=== PATIENT | male | born 1945 | race Caucasian/White ===

== ENCOUNTER 2017-08-13 15:17 | Inpatient (IN) | payer OTHER ==
[2017-08-13] VITALS (18 sets, daily range): BP systolic 99–186; BP diastolic 59–136
[~2017-08-13] VITALS: Ht 172.7 cm; Wt 102.7 kg
--- NOTE | ~2017-08-13 | EKG ---
[place] [address] [place] [address] ELECTROCARDIOGRAM REPORT Name: RAVI ART Room #: HADLEY Rosales#: [id number] Admission: 08/13/17 Attend Phys: Discharge: Date of : 47 Report #: [id number] THIS REPORT FOR: //name// [facility]ly [facility] ED Test Date: 2017-08-13 Test Time: 15:22:37 Pat Name: RAVI ART Department: Room: Gender: M Supervisor Personnel Clerks: JEANCARLOS : 1945 Requested By: Armen Wolf Order Number: [id number] MD: Marcelo Jaeger Measurements Intervals [place] Rate: 41 P: AR: QRS: 38 QRSD: 201 T: 68 QT: 451 QTc: 373 Interpretive Statements A-flutter with a slow ventricular response Poor R wave progression No previous ECG available for comparison Electronically Signed On 08-13-2017 16:44:14 CDT by Marcelo Jaeger [email or web address] <ELECTRONICALLY SIGNED> By: Marcelo Jaeger MD, [facility] 08/13/17 1644 1522 1522 Marcelo Jaeger MD, FACC /EPI
--- NOTE | ~2017-08-13 | HC ---
[facility] [place] [address] CONSULTATION Name: RAVI ART Room #: 211-P [facility] IN M.R.#: [id number] Admission: 08/13/17 Attend Phys: Chalino Medina Discharge: 08/17/17 Date of : 47 Report #: [id number] THIS REPORT FOR: //name// CC: Chalino Medina NO PCP HISTORY OF PRESENT ILLNESS: This is a 71-year-old male patient who has a history of first degree AV block in the past, hypertension and diabetes, but never had any atrial arrhythmias diagnosed. The patient stated that on the day admission, he got up and just did not feel right. He said he began having some difficulty breathing when lying down, although he did not notice any progression of this prior to that. He stated he felt his chest tightness, but more so with difficulty in breathing. He said air seemed heavy to him. Because of this, he went and saw his primary care physician who evaluated him with ECG and demonstrated the presence of atrial flutter with a variable block. He has been on beta blockers for his antihypertensive regimen without issues in the past. The patient has COPD and has nocturnal oxygen, but apparently does not have severe desaturations to warrant the use of BiPAP or CPAP. He denies dependent or nondependent edema. He denies any palpitations. He denies any recent fever, chills or night sweats. Denies any other findings prior to the day of admission. He has had a stress test approximately 2 years ago at [facility] that was apparently negative without any evidence of atrial fibrillation. He is not on any anticoagulation. PAST MEDICAL HISTORY: Significant for: 1. Diabetes mellitus. 2. Hypertension. 3. Degenerative joint disease with chronic back pain. 4. History of prostate cancer. 5. IBS. ALLERGIES: No known drug allergies. PAST SURGICAL HISTORY: Significant for no major surgical procedures. MEDICATIONS AT HOME: Provigil, Coreg, aspirin, Motrin, Lipitor, Xanax, Cozaar, Lantus, [place], Lexapro, Ventolin, Neurontin, Aldactone and Janumet. DIAGNOSTIC STUDIES: Electrocardiogram: Atrial flutter with variable block. LABORATORY DATA: Noted and reviewed in the chart. REVIEW OF SYSTEMS: Positive for symptoms as mentioned and those commensurate with comorbid state, the 10-point review of system is negative. RADIOLOGY: Chest x-ray shows no acute processes. [facility] [address] [place] [address] CONSULTATION Name: RAVI ART Room #: 211-P DIS IN M.R.#: [id number] Admission: 08/13/17 Attend Phys: Chalino Medina Discharge: 08/17/17 Date of : 47 Report #: [id number] PHYSICAL EXAMINATION: GENERAL: Well-developed, well-nourished, white male, resting comfortably in no acute distress. VITAL SIGNS: Noted in the chart. HEENT: Normocephalic, atraumatic. Pupils are equal, round, reactive to light and accommodation. Extraocular muscles are intact. Sclerae and conjunctivae are anicteric. NECK: JVD is normal. Carotid upstrokes are bilaterally symmetrical. No bruits are heard. No thyromegaly. No lymphadenopathy. LUNGS: Clear to auscultation. No wheezes, rhonchi or crackles. No CVA tenderness. CARDIAC: Demonstrates a soft and variable first heart sound with a regular rhythm. No significant rubs or murmurs are noted. ABDOMEN: Soft, nontender, nondistended. Normal bowel sounds. EXTREMITIES: Without cyanosis, clubbing or edema. Distal pulses are intact. DTR symmetrical. NEUROLOGIC: Cranial nerves 2-12 are grossly normal and symmetrical. PSYCHIATRIC: Alert, oriented with normal affect. SKIN: Warm and dry. IMPRESSION: 1. Atrial flutter with variable block. He has only been off his carvedilol less than 24 hours now and we need to monitor that and make sure that the rate comes up. He is hemodynamically stable even with slower heart rates in the 40s. The issue is anticoagulation when I stopped the Lovenox and put him on heparin protocol because if he ends up needing a pacemaker, the Lovenox will be a significant factor at increasing bleeding and comorbidities. I did discuss with him the treatment of atrial flutter with anticoagulation orally for 4 weeks prior to attempt at cardioversions. Ideally, we would hold off on any type of pacing because of the possibility of pacemaker syndrome in a patient with flutter, but we will proceed as necessary. 2. Diabetes mellitus as per primary care. 3. Hypertension. We will stop the carvedilol. We will use other agents that may be more effective at controlling blood pressure such as stronger dihydropyridines like nifedipine and stronger ARBs to try and control the blood pressure without causing any type of slow heart rate. The use of also the pain medication such as the [place] may be a factor also in creating some degree of sedation. 4. Degenerative joint disease. Medications continue to monitor. <ELECTRONICALLY SIGNED> By: Kevin Espinosa MD 08/19/17 1632 0954 42 Kevin Espinosa MD /nt
--- NOTE | ~2017-08-13 | 2DMMODE ---
[facility] [address] [place] [address] 2 D/M-MODE ECHOCARDIOGRAM Name: RAVI ART Room #: 237-P ADM IN M.R.#: [id number] Admission: 08/13/17 Attend Phys: Chalino Bull Discharge: Date of : 47 Date of Service: 08/14/1728 Report #: [id number] THIS REPORT FOR: //name// APPROVED REPORT Study performed: 08/14/2017 08:24:15 EXAM: Comprehensive 2D, Doppler, and color-flow Echocardiogram Patient Location: ICU Room #: 237 Status: routine BSA: 2.14 HR: 49 bpm BP: 191/88 mmHg Other Information Study Quality: Adequate Indications COPD Diabetes Bradycardia Dyspnea Chest Pain Hypertension/HDD Atrial flutter 2D Dimensions LVEF(%): 63.32 (>50%) IVSd: 10.53 (7-11mm) LVOT Diam: 21.81 (18-24mm) LVDd: 50.99 mm PWd: 10.66 (7-11mm) LVDs: 33.39 (25-40mm) Aortic Root: 30.90 mm IVC: 28.00 mm Osman's LVEF: 63.32 % Aortic Valve AoV Peak Pollo.: 1.45 m/s AO Peak Gr.: 8.44 mmHg LVOT Max P.81 mmHg LVOT Max V: 1.10 m/s ÁNGEL Vmax: 2.82 cm2 Mitral Valve E/A Ratio: 1.6 [facility] [place] [address] [place] [address] 2 D/M-MODE ECHOCARDIOGRAM Name: RAVI ART Room #: 237-P ADM IN M.R.#: [id number] Admission: 08/13/17 Attend Phys: Chalino Bull Discharge: Date of : 47 Date of Service: 08/14/17 0928 Report #: [id number] MV Decel. Time: 148.42 ms MV E Max Pollo.: 1.42 m/s MV A Pollo.: 0.89 m/s MV PHT: 43.04 ms IVRT: 106.11 ms Pulmonary Valve PV Peak Pollo.: 1.01 m/s PV Peak Gr.: 4.06 mmHg Left Ventricle The left ventricle is normal size. There is normal LV segmental wall motion. There is normal left ventricular wall thickness. The left ventricular systolic function is normal. The left ventricular ejection fraction is within the normal range. LVEF is 60-65%. This study is not technically sufficient to allow evaluation of the LV diastolic function due to atrial flutter. Right Ventricle The right ventricle is normal size. The right ventricular systolic function is normal. Atria The left atrium size is normal. The right atrium size is normal. Aortic Valve The aortic valve is normal in structure. No aortic regurgitation is present. There is no aortic valvular stenosis. Mitral Valve The mitral valve is normal in structure. Trace mitral regurgitation. No evidence of mitral valve stenosis. Tricuspid Valve The tricuspid valve is normal in structure. There is no tricuspid valve regurgitation noted. Pulmonic Valve The pulmonary valve is normal in structure. There is no pulmonic valvular regurgitation. Great Vessels The aortic root is normal in size. IVC is dilated and collapses <50% with inspiration. Pericardium [facility] [address] [place] [address] 2 D/M-MODE ECHOCARDIOGRAM Name: KAELYNRAVI Room #: 237-P [facility] IN .R.#: [id number] Admission: 08/13/17 Attend Phys: Chalino Bull Discharge: Date of : 47 Date of Service: 08/14/17927 Report #: [id number] There is no pericardial effusion. <Conclusion> The left ventricle is normal size. LVEF is 60-65%. The aortic valve is normal in structure. The mitral valve is normal in structure. Trace mitral regurgitation. The tricuspid valve is normal in structure. The pulmonary valve is normal in structure. There is no pericardial effusion. <ELECTRONICALLY SIGNED> By: Kevin Espinosa MD 08/14/17927 7 0928 Kevin Espinosa MD /INF
[2017-08-13] MEDS ORDERED: PROVIGIL 200 M200 M1 PO (15:25)
[2017-08-13] MEDS ORDERED: AMLODIPINE BESY10 MG PO (15:25)
[2017-08-13] MEDS ORDERED: LIPITOR10 MG PO (15:26)
[2017-08-13] MEDS ORDERED: IBUPROFEN 800800 M1 PO (15:26)
[2017-08-13] MEDS ORDERED: ASPIR 8181 MG PO (15:26)
[2017-08-13] MEDS ORDERED: COREG25 MG PO (15:26)
[2017-08-13] MEDS ORDERED: XANAX 0.25 MG0.25 MG PO (15:27)
[2017-08-13] MEDS ORDERED: COZAAR 50 MG TA50 M2 PO (15:27)
[2017-08-13] MEDS ORDERED: JANUMET 50-1,01 EACH PO (15:27)
[2017-08-13] MEDS ORDERED: LANTUS100 UNIT/M SUBQ (15:28)
[2017-08-13] MEDS ORDERED: VENTOLIN HFA 1818 GM INH (15:29)
[2017-08-13] MEDS ORDERED: NORCO 10-325 T1 EACH PO (15:29)
[2017-08-13] MEDS ORDERED: LEXAPRO20 MG PO (15:29)
[2017-08-13 16:00] LABS: BASOPHILS 1.2 % (0.0-2.0); EOSINOPHILS 3.7 % (0.0-3.0); HEMATOCRIT 35.6 % (42.0-52.0); HEMOGLOBIN 11.9 gm/dL (14.0-18.0); LYMPHOCYTES 21.8 % (24.0-44.0); MCH 28.7 pg (26.0-34.0); MCHC 33.4 g/dL (28.0-37.0); MCV 85.9 fL (80.0-100.0); MONOCYTES 7.3 % (1.0-8.0); PLATELET COUNT 207 thou/uL (150-400); RBC 4.15 mil/uL (4.50-6.00); RDW 13.1 % (10.5-14.5)
[2017-08-13] MEDS ORDERED: GABAPENTIN 100100 MG PO (16:00)
[2017-08-13] MEDS ORDERED: ALDACTONE25 MG PO (16:03)
[2017-08-13 16:09] LABS: ANION GAP 5 mmol/L (7-16); BUN 22 mg/dL (7-18); CALCIUM 9.8 mg/dL (8.5-10.1); CHLORIDE 102 mmol/L (98-107); CO2 31 mmol/L (21-32); CREATININE 1.4 mg/dL (0.7-1.3); GLUCOSE 216 mg/dL (74-106); POTASSIUM 4.4 mmol/L (3.5-5.1); SODIUM 138 mmol/L (136-145)
[2017-08-13 16:14] LABS: APTT 26.9 Seconds (24.5-32.8); PROTIME 10.7 Seconds (9.3-11.4)
[2017-08-13 16:17] LABS: ALBUMIN 3.9 g/dL (3.4-5.0); MAGNESIUM 1.8 mg/dL (1.8-2.4); SGOT 14 U/L (15-37); SGPT 26 U/L (30-65); TOTAL BILIRUBIN 0.5 mg/dL (<0.1-1.0); TROPONIN-I < 0.04 ng/mL (<0.06)
[2017-08-14] VITALS (12 sets, daily range): BP systolic 158–184; BP diastolic 54–86
[2017-08-14 04:17] LABS: CHOLESTEROL 120 mg/dL (<200); HDL CHOLESTEROL 29 mg/dL (>40); LDL CHOLESTEROL 69 mg/dL (<100); SERUM ASSESSMENT Clear; TC:HDL 4.1 Ratio (Not establshd); TRIGLYCERIDE 110 mg/dL (<150); VLDL 22 mg/dL (<40)
[2017-08-14 04:52] LABS: FOLIC ACID 17.4 ng/mL (8.6-58.9); TSH 2.21 uIU/mL (0.358-3.740)
[2017-08-14 10:53] LABS: HEMATOCRIT 33.8 % (42.0-52.0); HEMOGLOBIN 11.5 gm/dL (14.0-18.0); MCH 29.2 pg (26.0-34.0); MCHC 33.9 g/dL (28.0-37.0); MCV 86.1 fL (80.0-100.0); RBC 3.92 mil/uL (4.50-6.00); RDW 13.4 % (10.5-14.5); WBC 5.8 thou/uL (4.0-11.0)
[2017-08-15] VITALS (23 sets, daily range): BP systolic 142–202; BP diastolic 60–145
[2017-08-15 03:20] LABS: HEMATOCRIT 34.5 % (42.0-52.0); HEMOGLOBIN 11.5 gm/dL (14.0-18.0); MCH 28.8 pg (26.0-34.0); MCHC 33.5 g/dL (28.0-37.0); MCV 86.1 fL (80.0-100.0); RBC 4.01 mil/uL (4.50-6.00); RDW 13.3 % (10.5-14.5); WBC 6.6 thou/uL (4.0-11.0)
[2017-08-15 03:26] LABS: CALCIUM 9.9 mg/dL (8.5-10.1); CREATININE 1.4 mg/dL (0.7-1.3); POTASSIUM 3.9 mmol/L (3.5-5.1)
[2017-08-16 04:13] VITALS: BP 148/80
[2017-08-16 08:13] VITALS: BP 180/84
[2017-08-16 16:40] VITALS: BP 156/84
[2017-08-16 19:58] VITALS: BP 136/82
[2017-08-17 03:31] VITALS: BP 189/90
[2017-08-17 05:37] LABS: HEMATOCRIT 34.4 % (42.0-52.0); HEMOGLOBIN 11.6 gm/dL (14.0-18.0); MCH 28.9 pg (26.0-34.0); MCHC 33.6 g/dL (28.0-37.0); MCV 86.1 fL (80.0-100.0); RDW 13.1 % (10.5-14.5); WBC 6.5 thou/uL (4.0-11.0)
[2017-08-17 08:08] VITALS: BP 165/86
[2017-08-17] MEDS ORDERED: AMLODIPINE BESY10 MG PO (08:28)
[2017-08-17] MEDS ORDERED: ELIQUIS5 MG PO (08:28)
[2017-08-17] MEDS ORDERED: COZAAR100 MG PO (08:28)
[2017-08-17 08:46] VITALS: BP 165/86
== END 2017-08-17 11:42 | disposition home or self-care (01) | DRG 308 ==
LOC: ER 15:17 → EROBS 16:38 → ICU 16:38 → 2N 08-15 17:50 → ENTRNSPT 08-17 11:35 → EDTRNSPTSTS 08-17 11:37 → 2N 08-17 11:42
PROVIDERS: Emergency Medicine; Hospitalist; Internal Medicine
DX: I48.92 Unspecified atrial flutter (principal); E43 Unspecified severe protein-calorie malnutrition; D68.59 Other primary thrombophilia; J44.9 Chronic obstructive pulmonary disease, unspecified; K58.9 Irritable bowel syndrome, unspecified; I10 Essential (primary) hypertension; E11.65 Type 2 diabetes mellitus with hyperglycemia; M19.90 Unspecified osteoarthritis, unspecified site; I49.5 Sick sinus syndrome; T44.7X5A Adverse effect of beta-adrenoreceptor antagonists, initial encounter; Y92.89 Other specified places as the place of occurrence of the external cause; Z68.34 Body mass index [BMI] 34.0-34.9, adult; Z87.891 Personal history of nicotine dependence; Z85.46 Personal history of malignant neoplasm of prostate; Z79.4 Long term (current) use of insulin; Z79.82 Long term (current) use of aspirin; Z79.899 Other long term (current) drug therapy
CPT/HCPCS: 10078; 10797

== ENCOUNTER → 2017-09-10 | Outpatient (CLI) | payer OTHER ==
[~2017-09-10] VITALS: Ht 172.7 cm; Wt 99.8 kg
[~2017-09-10] MED LIST: ALDACTONE25 MG PO; AMLODIPINE BESY10 MG PO; ASPIR 8181 MG PO; COREG25 MG PO; COZAAR 50 MG TA50 M2 PO; COZAAR100 MG PO; ELIQUIS5 MG PO; GABAPENTIN 100100 MG PO; IBUPROFEN 800800 M1 PO; JANUMET 50-1,01 EACH PO; LANTUS100 UNIT/M SUBQ; LEXAPRO20 MG PO; LIPITOR10 MG PO; NORCO 10-325 T1 EACH PO; NORVASC10 MG PO; PRADAXA150 MG PO; PROVIGIL 200 M200 M1 PO; VENTOLIN HFA 1818 GM INH; XANAX 0.25 MG0.25 MG PO
--- NOTE | ~2017-09-10 | P ---
[facility] [place] [address] [place] [place] [address] PROCEDURE REPORT Name: RAVI ART Room #: REG [facility]#: [id number] Admission: 09/10/17 Attend Phys: Raúl Hair MD Discharge: Date of : 47 Report #: [id number] THIS REPORT FOR: //name// CC: Marcelo Hair PREOPERATIVE DIAGNOSES: 1. Typical atrial flutter. 2. Symptomatic bradycardia. POSTOPERATIVE DIAGNOSIS: Typical atrial flutter and ____ lolly disease. PROCEDURE PERFORMED: 1. SVT ablation, CPT code 56291. 2. EP with left atrial pacing and recording, CPT code 81689. 3. 3D mapping EP, CPT code 70451. 4. Mapping of tachycardia, CPT code 09186. HISTORY: The patient is a 71-year-old male with a history of recent admission for atrial flutter with a bradycardic response. During that admission, his beta blockers were held. He was seen by General Cardiology as an outpatient and remained symptomatic. As such, he was sent here for atrial flutter ablation. We also discussed that if he had evidence of severe conduction disease that we may proceed with implantation of a pacemaker today or tomorrow. ANESTHESIA: The patient underwent MAC anesthesia with no anesthesia related complications. DESCRIPTION OF PROCEDURE: The patient underwent informed consent. We discussed the details of the procedure including the risks, which include but not limited to bleeding, vascular damage, cardiac perforation, stroke, MT as well as damage to the [place] conduction system requiring a permanent pacemaker. We also discussed that if he does have severe conduction disease, we may proceed with pacemaker implantation post-ablation and we discussed the risks of this procedure, which include but not limited to bleeding, infection as well as cardiac perforation and pneumothorax. He understood these risks and is willing to proceed. The patient was brought to the EP laboratory in a fasting and unsedated state, prepped and draped in a sterile fashion. I obtained access to the right femoral vein times 3, placing an 8-Grenadian and two 7-Grenadian short sheaths using the modified Seldinger technique. Next, I placed a decapolar catheter easily in the coronary sinus and a live wire catheter into the right atrium. At baseline, the patient was in atrial flutter with a ventricular cycle length of 855 milliseconds, QRS duration 90 milliseconds, QT interval 405 milliseconds and an atrial cycle length of 230 milliseconds with a proximal to distal activation [facility] [address] [address] PROCEDURE REPORT Name: RAVI ART Room #: REG CLI [facility].#: [id number] Admission: 09/10/17 Attend Phys: Raúl Hair MD Discharge: Date of : 47 Report #: [id number] along the coronary sinus and a counter clockwise activation along the live wire catheter. Pacing was performed at 6 o'clock along the tricuspid annulus with a PPI minus tachycardia cycle length of 36 milliseconds consistent with a cavotricuspid isthmus dependent flutter. 3D mapping and ablation: Next, I placed a ramp sheath and an 8 mm [employer] Sommers ablation catheter into the right atrium. We created a 3D geometry and then created an activation map of the atrial flutter, which was consistent with the cavotricuspid isthmus dependent flutter. As such ablation was performed at 70 stephens and 60 degrees at 6 o'clock along the tricuspid annulus. A continuous drag lesion was created and at the very distal part of my line, there was conversion to sinus rhythm. There was no significant conversion pauses noted. Pacing was performed both medial and lateral to line and the transisthmus conduction time was 160 milliseconds. I looked along my line and there were a few small sharp electrograms and I performed additional ablation along the mid isthmus. Next, I removed my CS catheter and used this to measure the conduction system. The patient's AH interval was 220 milliseconds and his HV interval was 54 milliseconds. Next, a basic EP study was performed and AV block was noted at 500 milliseconds. AV lolly ERP was noted at 410 milliseconds at a [address] cycle length. There was no infra-hisian block noted. Post-ablation, we checked conduction across the isthmus again and pacing lateral to medial, the transisthmus conduction time was 175 milliseconds. Pacing medial to the line, the transisthmus conduction time was 170 milliseconds. As such, there was persistence of bidirectional block. Post-ablation, the patient was in sinus rhythm with sinus cycle length of 725 milliseconds, NH interval 375 milliseconds, QRS duration 90 milliseconds, QT interval of 370 milliseconds. As such, all catheters and sheaths were pulled. Hemostasis was obtained and the pacemaker was not recommended at this time, but may be something to consider in the future. CONCLUSIONS: 1. Successful ablation of typical atrial flutter with evidence of bidirectional block. 2. Normal SA lolly function. 3. Evidence of AV lolly disease, not yet warranting pacemaker. 4. Normal His-Purkinje function. 5. No other inducible arrhythmias. RECOMMENDATIONS: 1. The patient will be monitored for a period of 3 hours and then can go home with resumption of his home medications including anticoagulation. 2. I will have the patient wear a cardiac catheterization technician for a period of 1 week in about a month. [facility] [address] [place] [address] PROCEDURE REPORT Name: RAVI ART Room #: [facility].#: [id number] Admission: 09/10/17 Attend Phys: Raúl Hair MD Discharge: Date of : 47 Report #: [id number] 3. I will see the patient back in 6 weeks to ensure there are no symptomatic bradycardia issues. <ELECTRONICALLY SIGNED> By: Raúl Hair MD 09/10/17 1425 1103 1226 Raúl Hair MD /nt
[2017-09-10 07:09] LABS: ABSOLUTE NEUTROPHILS 6.2 thou/uL (1.4-8.2); BASOPHILS 1.5 % (0.0-2.0); EOSINOPHILS 3.5 % (0.0-3.0); HEMATOCRIT 36.6 % (42.0-52.0); HEMOGLOBIN 12.3 gm/dL (14.0-18.0); MCH 28.4 pg (26.0-34.0); MCHC 33.6 g/dL (28.0-37.0); MCV 84.5 fL (80.0-100.0); MONOCYTES 7.8 % (1.0-8.0); PLATELET COUNT 236 thou/uL (150-400); POLYS 72.2 % (36.0-66.0); RBC 4.33 mil/uL (4.50-6.00); RDW 13.2 % (10.5-14.5); WBC 8.5 thou/uL (4.0-11.0)
[2017-09-10 07:11] VITALS: BP 175/72
[2017-09-10 07:21] LABS: CALCIUM 9.8 mg/dL (8.5-10.1); CREATININE 1.5 mg/dL (0.7-1.3); POTASSIUM 3.9 mmol/L (3.5-5.1)
[2017-09-10 07:24] LABS: APTT 33.9 Seconds (24.5-32.8); INR 1.1; PROTIME 11.1 Seconds (9.3-11.4)
[2017-09-10 07:27] LABS: ALBUMIN 3.9 g/dL (3.4-5.0); TOTAL BILIRUBIN 0.4 mg/dL (<0.1-1.0); TOTAL PROTEIN 7.1 g/dL (6.4-8.2)
== END | disposition home or self-care (01) ==
LOC: CATH 06:35
PROVIDERS: Internal Medicine Cardiovascular Disease
DX: I48.3 Typical atrial flutter (principal); R00.1 Bradycardia, unspecified; I10 Essential (primary) hypertension; E78.5 Hyperlipidemia, unspecified; E11.9 Type 2 diabetes mellitus without complications; J44.9 Chronic obstructive pulmonary disease, unspecified; E66.09 Other obesity due to excess calories; Z98.890 Other specified postprocedural states; Z79.899 Other long term (current) drug therapy; Z85.46 Personal history of malignant neoplasm of prostate; Z79.01 Long term (current) use of anticoagulants; Z79.4 Long term (current) use of insulin; Z82.49 Family history of ischemic heart disease and other diseases of the circulatory system; Z87.891 Personal history of nicotine dependence; Z95.2 Presence of prosthetic heart valve; Z79.82 Long term (current) use of aspirin
CPT/HCPCS: 62110; 62900; 70005

== ENCOUNTER 2017-11-11 07:15 | Observation (INO) | payer OTHER ==
[~2017-11-11] VITALS: Ht 172.7 cm; Wt 95.8 kg
--- NOTE | ~2017-11-11 | P ---
[facility] [place] [address] [place] [address] PROCEDURE REPORT Name: KAELYNRAVI Apple Room #: 217-[facility]..#: [id number] Admission: 11/11/17 Attend Phys: Raúl Hair MD Discharge: Date of : 47 Report #: [id number] THIS REPORT FOR: //name// CC: Rosemarie Hair PREOPERATIVE DIAGNOSIS: Mobitz 2 second degree heart block. POSTOPERATIVE DIAGNOSIS: Mobitz 2 second degree heart block. HISTORY: The patient is a 71-year-old recently diagnosed with typical atrial flutter and a bradycardic response. He underwent successful flutter ablation. He was noted to have evidence of infra-Hisian conduction disease at the time of the ablation, but we decided against a pacemaker implant during that hospitalization. As an outpatient he underwent nascar racer, which showed episodes of heart block as well as Mobitz 2 second degree heart block. As such, he is here for dual-chamber pacemaker implantation. ANESTHESIA: The patient underwent MAC anesthesia with no anesthesia related complications. DESCRIPTION OF PROCEDURE: The patient underwent informed consent. We discussed the details of the procedure including the risks, which included but are not limited to bleeding, infection, vascular damage, cardiac perforation and pneumothorax. He understood these risks and is willing to proceed. The patient was brought to the EP laboratory in a fasting and unsedated state, prepped and draped in a sterile fashion. He received IV antibiotics. He underwent a venogram showing patency of left axillary vein. Next, I injected lidocaine at the incision site. Incision was made and the pocket was made over the prepectoral fascia. Access was obtained twice to the left axillary vein using the extrathoracic approach. Sheaths were positioned using the modified Seldinger technique. Next, leads were positioned into the right ventricular mid septum and another lead was placed in the right atrial appendage. Both leads demonstrated adequate lead characteristics. The leads were sutured to the prepectoral fascia. Device was connected. Pocket was irrigated with vancomycin and then closed in three layers and surgical glue was placed to the outer skin layer. The patient awoke neurologically and hemodynamically intact. No complications and no significant bleeding. The implanted pacemaker was a [employer], MRI compatible device, serial number is [id number]. The reason for MRI compatible device is history of prostate cancer and may need further MRIs in the future. The atrial lead was a [employer] model #[id number], 52 cm, serial #[id number] with a P-wave of 1.3 millivolts, pacing impedance of 410 ohms and a pacing threshold of 0.75 volts at 0.4 milliseconds. The RV lead was a [employer] model #[id number], 58 cm, serial #[id number]. This lead demonstrated an R-wave of 8.7 millivolts, pacing impedance of 580 ohms and a pacing threshold of 0.75 volts at 0.4 milliseconds. The device was programmed [facility] [address] [place] [address] PROCEDURE REPORT Name: RAVI ART Room #: 217-P ADM Zeny Rosales#: [id number] Admission: 11/11/17 Attend Phys: Raúl Hair MD Discharge: Date of : 47 Report #: [id number] to the DDDR 60-130 mode. CONCLUSIONS: 1. Successful dual-chamber pacemaker implantation. 2. Satisfactory atrial and ventricular pacing and sensing thresholds. By: 0936 0013 Raúl Hair MD /jimmy
--- NOTE | ~2017-11-11 | D ---
[facility] [place] [place] [address] DISCHARGE SUMMARY Name: KAELYNRAVI Room #: 217-P [facility] Zeny Rosales#: [id number] Admission: 11/11/17 Attend Phys: Raúl Hair MD Discharge: 11/12/17 Date of : 47 Report #: [id number] THIS REPORT FOR: //name// CC: Rosemarie Hair DATE OF SERVICE: 11/12/2017 DISCHARGE DIAGNOSES: 1. Mobitz II second degree heart block. 2. Symptomatic bradycardia. 3. Atrial flutter. HISTORY: The patient is a 71-year-old who was recently diagnosed with atrial flutter and a bradycardic response. He underwent recent Aflutter ablation. He was found to have evidence of infra-Hisian disease, but based on these findings, I do not feel it was warranted. I placed a pacemaker at the time of the ablation. In followup, he wore a president and chief executive officer showing that he had periods of heart block and Mobitz II second degree heart block. As such, he was here for pacemaker implantation. He underwent successful [employer] [facility] MRI compatible dual-chamber pacemaker insertion. HOSPITAL COURSE: He was monitored overnight in the CCU. He had no events. On the day of discharge, he denied any chest pain or shortness of breath, fevers or chills. PHYSICAL EXAMINATION: HEART: Regular rate and rhythm. LUNGS: Clear to auscultation bilaterally. ABDOMEN: Soft, nontender. EXTREMITIES: No clubbing, cyanosis, edema and the incision was healing nicely. A chest x-ray was performed showing stable lead position, no pneumothorax. He also underwent a device interrogation, which was within normal limits. As such, he was deemed stable for discharge home with instructions to follow up with me in 7-10 days. He will resume all as prior cardiac medications except for his Pradaxa, which he will resume on Thursday. By: 0830 1211 Raúl Hair MD /nt
[2017-11-11 07:37] VITALS: BP 189/83
[2017-11-11 07:57] LABS: ABSOLUTE NEUTROPHILS 4.4 thou/uL (1.4-8.2); BASOPHILS 1.4 % (0.0-2.0); EOSINOPHILS 4.4 % (0.0-3.0); HEMATOCRIT 35.8 % (42.0-52.0); HEMOGLOBIN 12.2 gm/dL (14.0-18.0); LYMPHOCYTES 17.8 % (24.0-44.0); MCH 28.2 pg (26.0-34.0); MCHC 34.1 g/dL (28.0-37.0); MCV 82.7 fL (80.0-100.0); MONOCYTES 8.1 % (1.0-8.0); PLATELET COUNT 210 thou/uL (150-400); POLYS 68.3 % (36.0-66.0); RBC 4.33 mil/uL (4.50-6.00); RDW 14.2 % (10.5-14.5); WBC 6.5 thou/uL (4.0-11.0)
[2017-11-11 08:12] LABS: APTT 27.5 Seconds (24.5-32.8); PROTIME 10.2 Seconds (9.3-11.4)
[2017-11-11 08:17] LABS: CALCIUM 10.1 mg/dL (8.5-10.1); CREATININE 1.5 mg/dL (0.7-1.3); POTASSIUM 3.8 mmol/L (3.5-5.1)
[2017-11-11 15:24] VITALS: BP 178/86
[2017-11-11 19:36] VITALS: BP 162/61
[2017-11-12 00:11] VITALS: BP 187/78
[2017-11-12 04:55] VITALS: BP 180/78
[2017-11-12 08:00] VITALS: BP 168/80
[2017-11-12 10:35] VITALS: BP 168/80
== END 2017-11-12 11:00 | disposition home or self-care (01) ==
LOC: CATH 07:15 → 2N 12:51 → CATH 15:08 → ENTRNSPT 11-12 10:55 → EDTRNSPTSTS 11-12 10:58 → 2N 11-12 11:00
PROVIDERS: Internal Medicine Cardiovascular Disease
DX: I44.1 Atrioventricular block, second degree (principal); I48.3 Typical atrial flutter; R00.1 Bradycardia, unspecified; I10 Essential (primary) hypertension; J44.9 Chronic obstructive pulmonary disease, unspecified; E11.9 Type 2 diabetes mellitus without complications; R79.1 Abnormal coagulation profile; E78.5 Hyperlipidemia, unspecified; Z85.46 Personal history of malignant neoplasm of prostate; Z82.49 Family history of ischemic heart disease and other diseases of the circulatory system; Z87.891 Personal history of nicotine dependence
CPT/HCPCS: 62110; 62900; 70005

== ENCOUNTER → 2019-08-18 | Outpatient (CLI) | payer OTHER | LOC: SJCVCIMAG 10:22 | PROVIDERS: ATTEND Internal Medicine | DX: I08.2 Rheumatic disorders of both aortic and tricuspid valves (principal); R94.31 Abnormal electrocardiogram [ECG] [EKG]; I10 Essential (primary) hypertension; E78.5 Hyperlipidemia, unspecified; I48.3 Typical atrial flutter; E11.9 Type 2 diabetes mellitus without complications; G47.33 Obstructive sleep apnea (adult) (pediatric); J44.9 Chronic obstructive pulmonary disease, unspecified; Z95.0 Presence of cardiac pacemaker ==

== ENCOUNTER → 2020-02-20 | Outpatient (CLI) | payer OTHER | LOC: SJCVC 10:25 | PROVIDERS: ATTEND Internal Medicine | DX: R94.31 Abnormal electrocardiogram [ECG] [EKG] (principal); I10 Essential (primary) hypertension; E11.9 Type 2 diabetes mellitus without complications; J44.9 Chronic obstructive pulmonary disease, unspecified; E78.5 Hyperlipidemia, unspecified; G47.33 Obstructive sleep apnea (adult) (pediatric); I48.3 Typical atrial flutter; Z95.0 Presence of cardiac pacemaker ==

== ENCOUNTER → 2020-08-31 | Outpatient (CLI) | payer OTHER | LOC: SJCVC 13:10 | PROVIDERS: ATTEND Internal Medicine | DX: I10 Essential (primary) hypertension (principal); I48.3 Typical atrial flutter; E78.5 Hyperlipidemia, unspecified; E11.9 Type 2 diabetes mellitus without complications; G47.33 Obstructive sleep apnea (adult) (pediatric); J44.9 Chronic obstructive pulmonary disease, unspecified; R00.1 Bradycardia, unspecified; Z95.0 Presence of cardiac pacemaker; Z79.899 Other long term (current) drug therapy; Z87.891 Personal history of nicotine dependence; Z82.49 Family history of ischemic heart disease and other diseases of the circulatory system ==

== ENCOUNTER → 2021-03-20 | Outpatient (CLI) | payer OTHER | LOC: SJCVC 13:17 | PROVIDERS: ATTEND Internal Medicine | DX: R94.31 Abnormal electrocardiogram [ECG] [EKG] (principal); I48.91 Unspecified atrial fibrillation; I10 Essential (primary) hypertension; I48.3 Typical atrial flutter; E78.5 Hyperlipidemia, unspecified; E11.9 Type 2 diabetes mellitus without complications; G47.33 Obstructive sleep apnea (adult) (pediatric); I12.9 Hypertensive chronic kidney disease with stage 1 through stage 4 chronic kidney disease, or unspecified chronic kidney disease; N18.9 Chronic kidney disease, unspecified; J44.9 Chronic obstructive pulmonary disease, unspecified; Z95.0 Presence of cardiac pacemaker; Z87.891 Personal history of nicotine dependence; Z72.89 Other problems related to lifestyle; Z79.4 Long term (current) use of insulin; Z79.899 Other long term (current) drug therapy ==